=== PATIENT | male | born 1935 | race Caucasian/White ===

== ENCOUNTER 2020-11-15 08:31 | Outpatient (CLI) | payer MEDICARE | END 2020-11-15 08:32 | disposition home or self-care (01) | LOC: CSHWCC 08:31 | PROVIDERS: ATTEND Nurse Practitioner Family | DX: I87.311 Chronic venous hypertension (idiopathic) with ulcer of right lower extremity (principal); L97.411 Non-pressure chronic ulcer of right heel and midfoot limited to breakdown of skin; I89.0 Lymphedema, not elsewhere classified; R60.0 Localized edema; G90.09 Other idiopathic peripheral autonomic neuropathy; I11.0 Hypertensive heart disease with heart failure; I50.20 Unspecified systolic (congestive) heart failure; I87.2 Venous insufficiency (chronic) (peripheral); M13.80 Other specified arthritis, unspecified site | CPT/HCPCS: 29581; 99213; G0463 ==

== ENCOUNTER 2020-11-22 13:00 | Outpatient (CLI) | payer MEDICARE | END 2020-11-22 13:01 | disposition home or self-care (01) | LOC: CSHWCC 13:00 | PROVIDERS: ATTEND Nurse Practitioner Family | DX: I87.311 Chronic venous hypertension (idiopathic) with ulcer of right lower extremity (principal); I87.2 Venous insufficiency (chronic) (peripheral); L97.411 Non-pressure chronic ulcer of right heel and midfoot limited to breakdown of skin; R60.0 Localized edema; I89.0 Lymphedema, not elsewhere classified; I11.0 Hypertensive heart disease with heart failure; I50.20 Unspecified systolic (congestive) heart failure; G90.09 Other idiopathic peripheral autonomic neuropathy; M13.80 Other specified arthritis, unspecified site | CPT/HCPCS: 99213; G0463 ==

== ENCOUNTER 2020-11-29 11:13 | Outpatient (CLI) | payer MEDICARE | END 2020-11-29 11:14 | disposition home or self-care (01) | LOC: CSHWCC 11:13 | PROVIDERS: ATTEND Nurse Practitioner Family | DX: I87.311 Chronic venous hypertension (idiopathic) with ulcer of right lower extremity (principal); I87.2 Venous insufficiency (chronic) (peripheral); L97.411 Non-pressure chronic ulcer of right heel and midfoot limited to breakdown of skin; I89.0 Lymphedema, not elsewhere classified; I11.0 Hypertensive heart disease with heart failure; I50.20 Unspecified systolic (congestive) heart failure; R60.0 Localized edema; M13.80 Other specified arthritis, unspecified site | CPT/HCPCS: 99213; G0463 ==

== ENCOUNTER 2020-12-07 13:16 | Outpatient (CLI) | payer MEDICARE | END 2020-12-07 13:17 | disposition home or self-care (01) | LOC: CSHWCC 13:16 | PROVIDERS: ATTEND Nurse Practitioner Family | DX: I87.311 Chronic venous hypertension (idiopathic) with ulcer of right lower extremity (principal); L97.411 Non-pressure chronic ulcer of right heel and midfoot limited to breakdown of skin; R60.0 Localized edema; G90.09 Other idiopathic peripheral autonomic neuropathy; I11.0 Hypertensive heart disease with heart failure; I50.20 Unspecified systolic (congestive) heart failure; I87.2 Venous insufficiency (chronic) (peripheral); I89.0 Lymphedema, not elsewhere classified; M13.80 Other specified arthritis, unspecified site | CPT/HCPCS: 29581; 97139; G0463; 99213 ==

== ENCOUNTER 2020-12-10 12:20 | Outpatient (CLI) | payer MEDICARE | END 2020-12-10 12:21 | disposition home or self-care (01) | LOC: CSHWCC 12:20 | PROVIDERS: ATTEND Nurse Practitioner Family | DX: I87.311 Chronic venous hypertension (idiopathic) with ulcer of right lower extremity (principal); I87.2 Venous insufficiency (chronic) (peripheral); L97.411 Non-pressure chronic ulcer of right heel and midfoot limited to breakdown of skin; I89.0 Lymphedema, not elsewhere classified; R60.0 Localized edema; G90.09 Other idiopathic peripheral autonomic neuropathy; I11.0 Hypertensive heart disease with heart failure; I50.20 Unspecified systolic (congestive) heart failure; M13.80 Other specified arthritis, unspecified site | CPT/HCPCS: 29581; 99213; G0463 ==

== ENCOUNTER 2020-12-12 09:53 | Outpatient (CLI) | payer MEDICARE | END 2020-12-12 09:54 | disposition home or self-care (01) | LOC: CSHWCC 09:53 | PROVIDERS: ATTEND Nurse Practitioner Family | DX: I87.311 Chronic venous hypertension (idiopathic) with ulcer of right lower extremity (principal); I87.2 Venous insufficiency (chronic) (peripheral); L97.411 Non-pressure chronic ulcer of right heel and midfoot limited to breakdown of skin; R60.0 Localized edema; I89.0 Lymphedema, not elsewhere classified; G90.09 Other idiopathic peripheral autonomic neuropathy; I11.0 Hypertensive heart disease with heart failure; I50.20 Unspecified systolic (congestive) heart failure; M13.80 Other specified arthritis, unspecified site | CPT/HCPCS: 29581; 99213; G0463 ==

== ENCOUNTER 2020-12-14 11:16 | Outpatient (CLI) | payer MEDICARE | END 2020-12-14 11:17 | disposition home or self-care (01) | LOC: CSHWCC 11:16 | PROVIDERS: ATTEND Nurse Practitioner Family | DX: I87.311 Chronic venous hypertension (idiopathic) with ulcer of right lower extremity (principal); L97.411 Non-pressure chronic ulcer of right heel and midfoot limited to breakdown of skin; R60.0 Localized edema; G90.09 Other idiopathic peripheral autonomic neuropathy; I11.0 Hypertensive heart disease with heart failure; I50.20 Unspecified systolic (congestive) heart failure; I87.2 Venous insufficiency (chronic) (peripheral); I89.0 Lymphedema, not elsewhere classified; M13.80 Other specified arthritis, unspecified site | CPT/HCPCS: 29581; 97139; G0463; 99213 ==

== ENCOUNTER 2020-12-19 11:38 | Outpatient (CLI) | payer MEDICARE | END 2020-12-19 11:39 | disposition home or self-care (01) | LOC: CSHWCC 11:38 | PROVIDERS: ATTEND Nurse Practitioner Family | DX: I87.311 Chronic venous hypertension (idiopathic) with ulcer of right lower extremity (principal); L97.411 Non-pressure chronic ulcer of right heel and midfoot limited to breakdown of skin; R60.0 Localized edema; G90.09 Other idiopathic peripheral autonomic neuropathy; I11.0 Hypertensive heart disease with heart failure; I50.20 Unspecified systolic (congestive) heart failure; I87.2 Venous insufficiency (chronic) (peripheral); I89.0 Lymphedema, not elsewhere classified; M13.80 Other specified arthritis, unspecified site | CPT/HCPCS: 29581; 99213; G0463 ==

== ENCOUNTER 2020-12-21 12:54 | Outpatient (CLI) | payer MEDICARE | END 2020-12-21 12:55 | disposition home or self-care (01) | LOC: CSHWCC 12:54 | PROVIDERS: ATTEND Nurse Practitioner Family | DX: I87.311 Chronic venous hypertension (idiopathic) with ulcer of right lower extremity (principal); I87.2 Venous insufficiency (chronic) (peripheral); L97.411 Non-pressure chronic ulcer of right heel and midfoot limited to breakdown of skin; I89.0 Lymphedema, not elsewhere classified; R60.0 Localized edema; G90.09 Other idiopathic peripheral autonomic neuropathy; I11.0 Hypertensive heart disease with heart failure; I50.20 Unspecified systolic (congestive) heart failure; M13.80 Other specified arthritis, unspecified site | CPT/HCPCS: 99213; G0463 ==

== ENCOUNTER 2020-12-28 11:26 | Outpatient (CLI) | payer MEDICARE | END 2020-12-28 11:27 | disposition home or self-care (01) | LOC: CSHWCC 11:26 | PROVIDERS: ATTEND Nurse Practitioner Family | DX: I87.311 Chronic venous hypertension (idiopathic) with ulcer of right lower extremity (principal); I87.2 Venous insufficiency (chronic) (peripheral); L97.411 Non-pressure chronic ulcer of right heel and midfoot limited to breakdown of skin; I89.0 Lymphedema, not elsewhere classified; R60.0 Localized edema; I11.0 Hypertensive heart disease with heart failure; I50.20 Unspecified systolic (congestive) heart failure; G90.09 Other idiopathic peripheral autonomic neuropathy; M13.80 Other specified arthritis, unspecified site ==

== ENCOUNTER 2021-07-15 09:29 | Outpatient (CLI) | payer MEDICARE | END 2021-07-15 09:30 | disposition home or self-care (01) | LOC: CSHWCC 09:29 | PROVIDERS: ATTEND Nurse Practitioner Family | DX: I87.311 Chronic venous hypertension (idiopathic) with ulcer of right lower extremity (principal); I87.2 Venous insufficiency (chronic) (peripheral); L97.812 Non-pressure chronic ulcer of other part of right lower leg with fat layer exposed; I89.0 Lymphedema, not elsewhere classified; R60.0 Localized edema; I11.0 Hypertensive heart disease with heart failure; I50.20 Unspecified systolic (congestive) heart failure; G90.09 Other idiopathic peripheral autonomic neuropathy; M13.80 Other specified arthritis, unspecified site; X58.XXXS Exposure to other specified factors, sequela | CPT/HCPCS: 99213; G0463 ==